=== PATIENT | female | born 1995 | race Asian ===

== ENCOUNTER 2020-02-16 19:08 | Emergency (ER) | payer MEDICARE, OTHER ==
[~2020-02-16] VITALS: Ht 162.6 cm; Wt 58.0 kg
--- NOTE | 2020-02-16 19:32 | NUR ---
PT PRESENTS TO THE ER FOR ABD PAIN AND NAUSEA WITHOUT VOMITTING. PT DENIES URINARY SYMPOTOMS, STATES SHE FINISHED MACROBID FOR A UTI ON FRIDAY. STATES PAIN CENTRAILIZED AROUND UMBILICUS "IN THE BACK."
[2020-02-16] MEDS ORDERED: HYDROmorphone 1 MG/ML, 1ML INJ ONE (19:41)
[2020-02-16] MEDS ORDERED: ONDANSETRON ODT 4 MG ONE (19:42)
[2020-02-16] MEDS ORDERED: ONDANSETRON ODT 4 MG PO ONE (20:00)
[2020-02-16] MEDS ORDERED: HYDROmorphone 1 MG/ML, 1ML INJ IM ONE (20:00)
[2020-02-16 20:10] LABS: BASOPHILS % (AUTO) 1 % (0-1); EOSINOPHILS % (AUTO) 1 % (1-7); LYMPHOCYTES % (AUTO) 19 % (22-44); MEAN CORPUSCULAR HEMOGLOBIN 32.2 pg (27.0-34.8); MEAN CORPUSCULAR HGB CONC 33.2 g/dL (32.4-35.8); MEAN PLATELET VOLUME 6.7 fL (7.4-10.4); MONOCYTES % (AUTO) 7 % (2-9); NEUTROPHILS % (AUTO) 72 % (42-75); PLATELET COUNT 397 x10^3/uL (130-400); RED BLOOD COUNT 4.27 x10^6/uL (3.82-5.3); RED CELL DISTRIBUTION WIDTH 12.7 % (9.6-15.2)
[2020-02-16 20:16] LABS: MD NO
[2020-02-16 20:19] LABS: HCG UR SG 1.018 (1.003-1.030)
[2020-02-16 20:20] LABS: MICROSCOPIC INDICATED
[2020-02-16 20:27] LABS: ALANINE AMINOTRANSFERASE 20 U/L (12-78); ALBUMIN 3.9 g/dL (3.4-5.0); ANION GAP 4 mmol/L (5-15); CHLORIDE 105 mmol/L (98-107); CREATININE 0.65 mg/dL (0.55-1.02)
[2020-02-16 20:29] LABS: ALKALINE PHOSPHATASE 89 U/L (45-117); BILIRUBIN,TOTAL 0.8 mg/dL (0.2-1.0); TOTAL PROTEIN 8.5 g/dL (6.4-8.2)
[2020-02-16 20:44] VITALS: BP 130/86
== END 2020-02-16 21:12 | disposition home or self-care (01) ==
LOC: ED 20:50
DX: R10.33 Periumbilical pain (principal); R11.0 Nausea; R51.9 Headache, unspecified
CPT/HCPCS: 36415; 80053; 81001; 81025; 85025; 87086; 96372; 99283; J1170; Q0162